=== PATIENT | male | born 1990 | race Caucasian/White ===

== ENCOUNTER → 2022-03-09 11:03 | Outpatient (CLI) | payer OTHER, MEDICAID, SELFPAY ==
[2022-03-09 19:10] LABS: Alanine Aminotransferase 41 IU/L (<50); Albumin 4.4 g/dL (3.5-5.0); Albumin Globulin Ratio 1.4 (1.0-2.8); Alkaline Phosphatase 63 U/L (38-126); Aspartate Aminotransferase 30 IU/L (17-59); Bilirubin Total 0.8 mg/dL (0.2-1.3); Blood Urea Nitrogen 17 mg/dL (9-20); Calcium 9.5 mg/dL (8.4-10.2); Carbon Dioxide 27 mmol/L (22-32); Chloride 100 mmol/L (98-107); Estimated Glomerular Filt Rate > 60 mL/min (>60); Globulin 3.1 g/dL (1.7-4.1); Glucose 115 mg/dL (70-100); HEMOLYSIS < 15 (0-50); Potassium 4.2 mmol/L (3.4-5.1); Sodium 137 mmol/L (137-145); Total Protein 7.5 g/dL (6.3-8.2)
[2022-03-09 19:13] LABS: Add Manual Diff / Slide Review NO; Basophils Absolute Auto 0 /uL (0-100); Basophils Percent Auto 0.4 % (0-2); Eosinophils Absolute Auto 0 /uL (0-450); Eosinophils Percent Auto 0.3 % (2-4); Hematocrit 38.6 % (41-53); Hemoglobin 13.5 g/dL (13.5-17.5); Lymphocytes Absolute Auto 1800 /uL (1100-4500); Lymphocytes Percent Auto 18.8 % (25-40); Mean Corpuscular Hemoglobin 28.7 PG (26-34); Monocytes Absolute Auto 200 /uL (0-900); Monocytes Percent Auto 2.6 % (3-14); Neutrophils Absolute Auto 7300 /uL (1500-7000); Neutrophils Percent Auto 77.9 % (50-75); Platelet Count 203 X10^3/uL (150-400); Red Cell Distribution Width 13.3 % (11.6-14.8); White Blood Cell Count 9.4 X10^3/uL (4.5-11.0)
== END ==
PROVIDERS: PCP Family Medicine; Visit Provider Family Medicine
DX: Z87.442 Personal history of urinary calculi (principal)
CPT/HCPCS: 80053; 81002; 85025

== ENCOUNTER → 2024-06-07 13:00 | Outpatient (CLI) | payer OTHER, SELFPAY ==
[2024-06-07 21:53] LABS: Adenovirus F 40/41 Not Detected (Not Detect); Astrovirus Not Detected (Not Detect); Campylobacter Not Detected (Not Detect); Clostridium difficile toxin AB Not Detected (Not Detect); Cryptosporidium Not Detected (Not Detect); Cyclospora cayetanensis Not Detected (Not Detect); Entamoeba histolytica Not Detected (Not Detect); Enteroaggregative E.coli Not Detected (Not Detect); Enteropathogenic E.coli Detected (Not Detect); Enterotoxigenic E.coli It/st Not Detected (Not Detect); Giardia lamblia Not Detected (Not Detect); Norovirus GI/GII Detected (Not Detect); Plesiomonsa shigelloides Not Detected (Not Detect); Rotavirus A Not Detected (Not Detect); Salmonella Not Detected (Not Detect); Sapovirus Not Detected (Not Detect); Shiga-like toxin-prod E.coli Not Detected (Not Detect); Shigella/Enteroinvasive E.coli Not Detected (Not Detect); Vibrio Not Detected (Not Detect); Vibrio cholerae Not Detected (Not Detect); Yersinia enterocolitica Not Detected (Not Detect)
== END ==
PROVIDERS: PCP Physician Assistant Medical; Visit Provider Physician Assistant Medical
DX: A05.9 Bacterial foodborne intoxication, unspecified (principal)
CPT/HCPCS: 87507

== ENCOUNTER → 2024-06-27 09:30 | Outpatient (CLI) | payer OTHER, SELFPAY ==
[2024-06-27 19:22] LABS: Add Manual Diff / Slide Review NO; Basophils Absolute Auto 0 /uL (0-100); Basophils Percent Auto 0.8 % (0-2); Eosinophils Absolute Auto 100 /uL (0-450); Eosinophils Percent Auto 2.3 % (2-4); Hematocrit 41.5 % (41-53); Hemoglobin 14.1 g/dL (13.5-17.5); Lymphocytes Absolute Auto 1700 /uL (1100-4500); Lymphocytes Percent Auto 34.5 % (25-40); Mean Corpuscular Hemoglobin 29.1 PG (26-34); Mean Corpuscular Volume 85.6 fL (80-100); Monocytes Absolute Auto 500 /uL (0-900); Monocytes Percent Auto 10.1 % (3-14); Neutrophils Absolute Auto 2600 /uL (1500-7000); Neutrophils Percent Auto 52.3 % (50-75); Platelet Count 214 X10^3/uL (150-400); Red Blood Cell Count 4.85 X10^6/uL (4.5-5.9); Red Cell Distribution Width 12.6 % (11.6-14.8)
[2024-06-27 19:40] LABS: Alanine Aminotransferase 37 IU/L (<50); Albumin 4.7 g/dL (3.5-5.0); Albumin Globulin Ratio 1.7 (1.0-2.8); Alkaline Phosphatase 47 U/L (38-126); Aspartate Aminotransferase 32 IU/L (17-59); BUN Creatinine Ratio 17.3 (6-22); Bilirubin Total 0.5 mg/dL (0.2-1.3); Blood Urea Nitrogen 17 mg/dL (9-20); Calcium 9.7 mg/dL (8.4-10.2); Chloride 104 mmol/L (98-107); Cholesterol 158 mg/dL (140-199); Estimated Glomerular Filt Rate > 60 mL/min (>60); Globulin 2.8 g/dL (1.7-4.1); Glucose 90 mg/dL (70-100); HDL Cholesterol 31 mg/dL (40-60); HEMOLYSIS 17 (0-50); LDL Cholesterol Calculated 87 mg/dL (<100); Potassium 4.7 mmol/L (3.4-5.1); Sodium 140 mmol/L (137-145); Total Protein 7.5 g/dL (6.3-8.2); Triglycerides 200 mg/dL (35-150)
[2024-06-27 19:41] LABS: Hemoglobin A1C% w Est Avg Glu 5.2 % (4.0-6.0)
[2024-06-27 20:35] LABS: Carbon Dioxide 27 mmol/L (22-32)
== END ==
PROVIDERS: PCP Physician Assistant Medical; Visit Provider Physician Assistant Medical
DX: R06.02 Shortness of breath (principal); R73.03 Prediabetes; D64.9 Anemia, unspecified
CPT/HCPCS: 80053; 80061; 83036; 84443; 85025

== ENCOUNTER → 2024-07-31 09:48 | Outpatient (CLI) | payer OTHER, SELFPAY ==
[2024-07-31 19:14] LABS: Cholesterol 235 mg/dL (140-199); HDL Cholesterol 41 mg/dL (40-60); LDL Cholesterol Calculated 155 mg/dL (<100); Triglycerides 193 mg/dL (35-150)
== END ==
PROVIDERS: PCP Physician Assistant Medical; Visit Provider Physician Assistant Medical
DX: Z13.6 Encounter for screening for cardiovascular disorders (principal); E78.1 Pure hyperglyceridemia
CPT/HCPCS: 80061

== ENCOUNTER → 2024-11-09 09:49 | Outpatient (CLI) | payer OTHER, SELFPAY ==
[2024-11-09 19:18] LABS: Cholesterol 211 mg/dL (140-199); HDL Cholesterol 35 mg/dL (40-60); LDL Cholesterol Calculated 122 mg/dL (<100); Triglycerides 268 mg/dL (35-150)
[2024-11-09 19:46] LABS: Prostate Specific Antigen Scrn 0.678 ng/mL (0.1-4.0)
== END ==
PROVIDERS: PCP Physician Assistant Medical; Visit Provider Physician Assistant Medical
DX: E78.1 Pure hyperglyceridemia (principal); F17.200 Nicotine dependence, unspecified, uncomplicated; Z80.42 Family history of malignant neoplasm of prostate
CPT/HCPCS: 80061; G0103

== ENCOUNTER 2025-05-10 21:26 | Emergency (ER) | payer OTHER, SELFPAY ==
[2025-05-10 21:31] VITALS: BP 146/84; PULSE 73; RESP 15; TEMP 36.6; O2SAT 100; BMI 31.8
[2025-05-10] MEDS: IBUPROFEN 400 MG TABLET 800 MG PO (23:50)
--- NOTE | 2025-05-10 23:50 | PC.NURSE ---
pt was at work when he went to grab a glass out of the freezer and it was stuck to the ice causing it to break in his hand cutting the distal end of the 5th digit of the right hand, EMS was called and the laceration was irrigated using pressure to remove any foreign objects and wrapped with a pressure dressing. dressing removed upon arrival to room, laceration continues to ooze, re-wrapped with 4x4 and tape, no sensory or motor deficits noted
[2025-05-11] MEDS: LIDOCAINE 1% (PF) 5 ML INJ (00:02)
--- NOTE | 2025-05-11 01:08 | ED_ITS ---
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, cut his pinky finger on a broken wine glass stem this evening, no other injuries recalled, local pressure to stop the bleeding. Unclear date of last tetanus. Laceration on dorsal aspect of pinky, can fully extend his finger. Related Data Home Medications ?Medication ?Instructions ?Recorded ?Confirmed acetaminophen 500 mg tablet 500 mg PO Q6H PRN 06/07/24 02/05/25 Previous Rx's ?Medication ?Instructions ?Recorded baclofen 10 mg tablet 10 mg PO QID PRN neck and 0 08/08/24 shoulder pain/stiffness #60 tabs hydrocortisone 1 % topical cream 1 applic topical BID- QID PRN hand 08/08/24 rash #28.4 grams fenofibrate 54 mg tablet 54 mg PO DAILY #90 tabs 10/29 12/22 hydrocodone 5 mg-acetaminophen 325 1 tab PO Q6H PRN pa in #7 tabs 05/11/25 mg tablet Allergies Allergy/AdvReac Type Severity Reaction Status Date / Time No Known Drug Allergies Allergy Verified 02/05/25 15:23 Patient History Medical History Pre-diabetes Anemia Nephrolithiasis History of kidney stones Social History Smoking Status: Current every day smoker Smoking Status: Current every day smoker tobacco type: cigarettes Exam Narrative Exam Narrative: GENERAL: Well-developed patient, in mild distress. HEAD: Atraumatic. Normocephalic. EYES: Pupils equal round and reactive. Extraocular motions intact. No scleral icterus. No injection or drainage. ENT: No obvious craniofacial trauma NECK: Trachea midline. Non tender CARDIOVASCULAR: Regular rate and rhythm without murmurs, gallops, or rubs. RESPIRATORY: Clear to auscultation. Breath sounds equal bilaterally. No wheezes, rales, or rhonchi. GASTROINTESTINAL: Abdomen soft, non-tender, nondistended. EXTREMITIES: Left pinky finger with dorsal laceration distal phalanx, no visible tendinous structures, can fully extend, can flex at DIP joint in isolation. Laceration 1.5 cm horizontal plane through subcutaneous tissue volar aspect distal phalynx, could not see any tendon/joint/bone/FB. NEURO: AOx3. Motor functions grossly nonfocal. SKIN: No rash or erythema of visible areas Initial Vital Signs Initial Vital Signs: Vital Signs Temperature 97.9 F 05/10/25 21:31 Pulse Rate 73 05/10/25 21:31 Respiratory Rate 15 05/10/25 21:31 Blood Pressure 146/84 H 05/10/25 21:31 Pulse Oximetry 100 05/10/25 21:31 Oxygen Delivery Method Room Air 05/10/25 21:31 Procedures Laceration Repair Laceration 1: Time of procedure: 02:30 Site: hand (Right volar pinky finger) Side (If applicable): right Size (cm): 1.5 Description: linear Depth: simple, single layer Local Anesthetic: lidocaine 1% Amount of anesthesia used (mL): 2 Pre-repair: wound explored Skin layer closed with: nylon Skin layer suture size: 5-0 Number of sutures: 5 Technique: simple, interrupted Course Orders Ordered: Discontinued Medications Hydrocodone Bitart/Acetaminophen (Hydrocodone/Acet 5/325 Prepack) 1 bottle MISC DIRECTED ONE Stop: 05/11/25 02:08 Last Admin: 05/11/25 02:20 Dose: 1 bottle Documented By: DHARA Hydrocodone Bitart/Acetaminophen (Hydrocodone/Acet 5/325 Tablet) 1 tab PO NOW ONE Stop: 05/11/25 02:08 Last Admin: 05/11/25 02:20 Dose: 1 tab Documented By: DHARA Bacitracin (Bacitracin Oint 0.9 Gm Pckt) 1 applic TOP NOW ONE Stop: 05/11/25 01:47 Last Admin: 05/11/25 01:49 Dose: 1 applic Documented By: DHARA Ibuprofen (Ibuprofen 400 Mg Tablet) 800 mg PO NOW ONE Stop: 05/10/25 23:04 Last Admin: 05/10/25 23:50 Dose: 800 mg Documented By: DHARA Lidocaine HCl (Lidocaine 1% (Pf) 5 Ml) 5 ml INJ NOW ONE Stop: 05/10/25 23:59 Last Admin: 05/11/25 00:02 Dose: 5 ml Documented By: DHARA Vital Signs Vital signs: Vital Signs - 8 hr 05/11/25 02:41 Pulse Rate 72 Respiratory Rate 18 Blood Pressure 136/80 Pulse Oximetry 100 Oxygen Delivery Method Room Air MDM - Wound/Laceration MDM Narrative Medical decision making narrative: 35-year-old male with broken glass laceration superficial plane volar aspect right pinky finger, no visible tendinous structure, can fully extend. We did discuss x-rays, he declined. We did discuss tetanus update, also declined. Primary wound closure after lidocaine injection, wound dressing by nursing. Wound check advised with the regular doctor at [facility] on Wednesday. Return precautions discussed. Advised no obvious volar tendon, but can have flexion function with partial tendon injury, this is theoretically possible, and could extend to full disruption of the flexor tendon at some future date, especially with any significant load, not obvious indication at this time to see hand surgery or orthopedic surgery in follow up, but just an awareness that there could be existence of a partial flexor tendon injury. Wound recheck for now with PCP on Wednesday advised, could elected to see Orthopedics if desired, consider referral from PCP if indicated. 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 Unclear last tetanus status shot, offered, declined for now. We discussed x-ray, declined for now. On clinical exam the laceration had a fairly superficial plane, no visible tendon structures, flexion function intact, in theory it is possible to have a partial tendon laceration that might fully separate at some later date, but did not warrant referral to hand surgery at this time. Sutures placed. Hydrocodone/acetaminophen pain medication given, home pack, prescription sent to your local requested pharmacy. Try to keep wound dry, not submerging in any liquid. Wound check advised in [facility] on Wednesday. Return earlier to this/nearest emergency department for any change worsening symptoms or any concerns prior. Prescriptions: New hydrocodone-acetaminophen 5-325 mg tablet 1 tab PO Q6H PRN (Reason: pain) Qty: 7 0RF No Action acetaminophen 500 mg tablet 500 mg PO Q6H PRN hydrocortisone 1 % cream 1 applic topical BID-QID PRN (Reason: hand rash) Qty: 28.4 1RF baclofen 10 mg tablet 10 mg PO QID PRN (Reason: neck and shoulder pain/stiffness) Qty: 60 0RF fenofibrate 54 mg tablet 54 mg PO DAILY Qty: 90 0RF Referrals: Maria Isabel Thompson PA-C [Primary Care Provider, Medical] Stand Alone Forms: Patient Portal/API
[2025-05-11] MEDS: BACITRACIN OINT 0.9 GM PCKT 1 APPLIC TOP (01:49)
--- NOTE | 2025-05-11 02:25 | PC.NURSE ---
bacitracin applied to laceration and finger wrapped with telfa and tosha
[2025-05-11 02:41] VITALS: BP 136/80; PULSE 72; RESP 18; O2SAT 100
== END 2025-05-11 02:45 | disposition home or self-care (01) ==
PROVIDERS: Emergency Provider Emergency Medicine; PCP Physician Assistant Medical
DX: S61.216A Laceration without foreign body of right little finger without damage to nail, initial encounter (principal); W25.XXXA Contact with sharp glass, initial encounter
CPT/HCPCS: 12001; 99283